=== PATIENT | male | born 1980 | race Caucasian/White ===

== ENCOUNTER 2017-03-11 09:43 | Emergency (ER) | payer SELFPAY | END 2017-03-11 12:49 | disposition home or self-care (01) | PROVIDERS: Emergency Provider Nurse Practitioner Family; Family Provider Emergency Medicine; Visit Provider Nurse Practitioner Family | DX: M54.6 Pain in thoracic spine; M25.561 Pain in right knee; V89.2XXA Person injured in unspecified motor-vehicle accident, traffic, initial encounter | CPT/HCPCS: 81003; 99201 ==

== ENCOUNTER 2017-05-16 08:38 | Emergency (ER) | payer MEDICAID, SELFPAY ==
--- NOTE | 2017-05-16 | CT_ITS ---
CT head/brain wo con HISTORY: Altered mental status, altered level of consciousness, confusion ITS.REASON: AMS ORDERING PHYSICIAN: Russell Lang MD PATIENT AGE: 36 years COMPARISON: None TECHNIQUE: Axial images obtained without contrast. Brain and bone windows reviewed. FINDINGS: No midline shift, mass effect, intracranial hemorrhage, hydrocephalus, or extra-axial fluid collection is evident. The calvarium has an unremarkable appearance. No mastoid effusion. Moderate mucosal thickening involves the ethmoid sinuses.. IMPRESSION: No acute intercranial findings.
[2017-05-16 09:07] VITALS: BP 137/87; PULSE 81; RESP 14; TEMP 37.2; O2SAT 96; BMI 25.8
--- NOTE | 2017-05-16 09:22 | XR_ITS ---
XR chest 2V HISTORY: Pain, pain between shoulder blades, tobacco use ITS.REASON: ams ORDERING PHYSICIAN: Russell Lang MD PATIENT AGE: 36 years COMPARISON: None available FINDINGS: The cardiomediastinal silhouette and pulmonary vascularity are within normal limits. Atelectasis or infiltrate is present in the left lung base with mildly elevated left hemidiaphragm. The remaining lungs are clear. No obvious effusions. There are slight decrease in height anteriorly involving the T8 vertebral body. This is age indeterminate. No previous studies are available for comparison. IMPRESSION: 1. Mild left basilar atelectasis or infiltrate to 2. Minimal wedging of T8 age indeterminate
--- NOTE | 2017-05-16 09:40 | XR_ITS ---
XR shoulder LT min 2V HISTORY: Left shoulder pain ITS.REASON: shoulder pain ORDERING PHYSICIAN: Russell Lang MD PATIENT AGE: 36 years COMPARISON: None FINDINGS: No fracture or dislocation. No lytic or blastic change. There is normal mineralization. The joint spaces are well-preserved. No significant degenerative/arthritic changes. No erosive changes evident. No subacromial stenosis. There are some minimal hypertrophic change along the lateral aspect of the acromion superiorly. IMPRESSION: Minimal hypertrophic changes of the acromion laterally otherwise negative left shoulder
--- NOTE | 2017-05-16 09:40 | XR_ITS ---
XR clavicle LT CLINICAL INDICATION: Left clavicular pain ITS.REASON: shoulder pain ORDERING PHYSICIAN: Russell Lang MD PATIENT AGE: 36 years COMPARISON: None FINDINGS: No fracture or dislocation. No bony or joint abnormality. IMPRESSION: Negative left clavicle
[2017-05-16 09:45] LABS: Microscopic, Urine URINE MICROSCOPIC (MICROSCOPIC)
[2017-05-16 09:47] LABS: Basophils % 0.1 % (0.1-2.0); Eosinophils # 0.1 K/mm3 (0.0-0.4); Eosinophils % 0.3 % (0.1-12.0); Hemoglobin 14.3 g/dL (14.1-18.0); Lymphocytes # 1.5 K/mm3 (0.7-4.5); Lymphocytes % 6.5 K/mm3 (10-50); Mean Corpuscular HGB Conc 33.2 g/dL (31.8-35.4); Mean Corpuscular Hemoglobin 29.8 pg (27.0-31.2); Mean Corpuscular Volume 89.7 fl (80-94); Mean Platelet Volume 8.7 fl (7.4-10.4); Monocytes # 1.6 K/mm3 (0.1-1.0); Monocytes % 6.9 % (1.7-9.3); Neutrophils # 20.2 K/mm3 (1.8-7.8); Neutrophils % 86.2 % (37.0-80.0); Platelet Count 232 K/mm3 (142-424); Red Blood Count 4.79 M/mm3 (4.60-6.20); Red Cell Distribution Width 13.5 % (11.5-17.5); White Blood Count 23.5 K/mm3 (4.8-10.8)
[2017-05-16 09:47] LABS: Appearance,Urine SL CLOUDY (Clear); Bilirubin,Urine Negative (Negative); Blood, Urine 2+ (Negative); Color,Urine YELLOW (Yellow); Glucose,Urine (UA) TRACE (Negative); Ketones,Urine Negative (Negative); Leukocyte Esterase,Urine Negative (Negative); Nitrate,Urine Negative (Negative); Protein,Urine TRACE (Negative); Specific Gravity, Urine <= 1.005 (1.005-1.030)
[2017-05-16 09:53] LABS: MANUAL DIFFERENTIAL MANUAL DIFFERENTIAL (MANUAL DIFF)
[2017-05-16 09:55] LABS: Bacteria,Urine 1+ /lpf; Squamous Epithelial Cell,Urine Occasional #/hpf (0-5); WBC,Urine Occasional #/hpf (0-3)
[2017-05-16 09:57] LABS: Amphetamine/Metha Screen,Urine Positive ng/mL (<1000); Barbiturates Screen,Urine Negative ng/mL (<200); Benzodiazepines Screen,Urine Negative ng/mL (200); Cannabinoid Screen,Urine Positive ng/mL (<50); Cocaine Screen,Urine Negative ng/g (<300); Methadone Screen,Urine Negative ng/mL (<300); Opiate Screen,Urine Positive ng/mL (<300); Phencyclidine Screen,Urine Negative ng/mL (<25)
[2017-05-16 10:01] LABS: Acetaminophen 1.9 ug/mL (10-30); Alanine Aminotransferase 25 U/L (12-78); Albumin Level 2.9 gm/dL (3.4-5.0); Albumin/Globulin Ratio 0.6 (1.1-1.8); Alkaline Phosphatase 109 U/L (46-116); Anion Gap 14.5 mEq/L (5-15); Aspartate Amino Transferase 11 U/L (15-37); Bilirubin,Total 0.5 mg/dL (0.2-1.0); Blood Urea Nitrogen 8 mg/dL (7-18); Calcium 8.5 mg/dL (8.5-10.1); Carbon Dioxide 25 mmol/L (21.0-32.0); Chloride 96 mmol/L (98-107); Creatinine Clearance Estimated 149 mL/min (0-300); Estimated Glomerular Filt Rate 110 ml/min (>60); GFR (African American) 133 ML/MIN (>60); Globulin 4.6 gm/dl (1.3-3.2); Glucose 144 mg/dL (74-106); Magnesium 1.6 mg/dL (1.4-2.2); Potassium 3.5 mmoL/L (3.5-5.1); Sodium 132 mmol/L (136-145); Total Protein,Serum 7.5 gm/dL (6.4-8.2)
[2017-05-16 10:02] LABS: Ethyl Alcohol 0 mg/dL (0-99)
[2017-05-16 10:03] LABS: Lactic Acid 0.6 mmol/L (0.4-2.0)
[2017-05-16 10:06] LABS: Salicylate 3.5 mg/dL (2.8-20.0)
--- NOTE | 2017-05-16 10:06 | HMH.EDGENADL ---
ED Disposition Clinical Impression: LLL pneumonia, Skin abscess, Active intravenous drug use, Leucocytosis, Left against medical advice Disposition: Home, Self-Care Condition on Discharge: Fair Instructions: Drug Abuse and Drug Addiction, DI for Pneumonia -- Adult, DI for Altered Mental Status, DI for Skin Abscess, DI for Staph Infection, Staph Infection Additional Instructions: 1- strat using abx immediately. 2- stop injecting drugs. 3- follow up with Dr Reeder in AM who took over for Dr Coats's patients. 4- return ifor admission if worse or if you change your mind. 5- alternate tylenol and motrin for fever and body aches. I explained to the patient that he is receiving imperic antibiotics and he need to follow with [facility] office for final results, he and his girfriend verbalized understanding. 1200 for one more time i discussed with the patient but he was adamant about leaving and taking antibiotics as an outpatient. Prescriptions: Clindamycin HCl [Clindamycin 300mg Cap] 300 mg PO TID #21 cap Sulfamethoxazole/Trimethoprim [Bactrim DS tablet] 2 each PO BID #40 tab Referrals: Syl Mathias APRN [Primary Care Provider] - - Critical Care Critical Care Time: No Attestation: On 05/16/17, the high probability of a clinically significant, sudden or life threatening deterioration of the following system(s) required my full and direct attention, intervention and personal management. The time I documented below is in addition to time spent performing reported procedures but includes the following listed in this critical care notation. Medical Decision Making Vital Signs: 05/16/17 09:07 Temperature 98.9 F Temperature Source Oral Pulse Rate [Right Radial] 81 Respiratory Rate 14 Blood Pressure [Right Arm] 137/87 Blood Pressure Mean [Right Arm] 103 Blood Pressure Source [Right Arm] Automatic Cuff Blood Pressure Position [Right Arm] Supine 02 Sat by Pulse Oximetry 96 Oxygen Delivery Method Room Air - Lab Data Lab Results 05/16/17 09:35: WBC 23.5 H*, RBC 4.79, Hgb 14.3, Hct 43.0, MCV 89.7, MCH 29.8, MCHC 33.2, RDW 13.5, Plt Count 232, MPV 8.7, Neut % (Auto) 86.2 H, Lymph % (Auto) 6.5 L, [place] % (Auto) 6.9, Eos % (Auto) 0.3, Baso % (Auto) 0.1, Neut # (Auto) 20.2 H, Lymph # (Auto) 1.5, [place] # (Auto) 1.6 H, Eos # (Auto) 0.1, Baso # (Auto) 0.0, Total Counted 100, Neutrophils % (Manual) 72, Band Neutrophils % 14.0 H, Lymphocytes % (Manual) 5 L, Monocytes % (Manual) 9, Platelet Estimate Normal, RBC Morphology Normal 05/16/17 09:35: Sodium 132 L, Potassium 3.5, Chloride 96 L, Carbon Dioxide 25, Anion Gap 14.5, BUN 8, Creatinine 0.80, Estimated Creat Clear 149, Estimated GFR 110, Est GFR ( Amer) 133, Glucose 144 H, Calcium 8.5, Magnesium 1.6, Total Bilirubin 0.5, AST 11 L, ALT 25, Alkaline Phosphatase 109, Total Protein 7.5, Albumin 2.9 L, Globulin 4.6 H, Albumin/Globulin Ratio 0.6 L, Salicylates 3.5, Acetaminophen 1.9 L, Plasma/Serum Alcohol 0 05/16/17 09:35: Lactic Acid 0.6 05/16/17 09:42: Urine Opiates Screen Positive H, Ur Barbituates Screen Negative, Ur Phencyclidine Scrn Negative, Ur Amphetamines Screen Positive H, U Methamphetamines Scrn Negative, U Benzodiazepines Scrn Negative, Urine Cocaine Screen Negative, U Marijuana (THC) Screen Positive H 05/16/17 09:42: Urine Color Yellow, Urine Appearance Sl cloudy, Urine pH 6.0, Ur Specific [place] <= 1.005, Urine Protein Trace, Urine Glucose (UA) Trace, Urine Ketones Negative, Urine Blood 2+, Urine Nitrate Negative, Urine Bilirubin Negative, Urine Urobilinogen 1.0, Ur Leukocyte Esterase Negative, Urine RBC 3-5, Urine WBC Occasional, Ur Squamous Epith Cells Occasional, Urine Bacteria 1+ Result diagrams: 05/16/17 09:35 05/16/17 09:35 Orders (Tests/Meds): ED MEDICATIONS Discontinued Medications Generic Name Dose Route Start Last Admin Trade Name Freq PRN Reason Stop Dose Admin Sodium Chloride 1,000 mls @ 999 mls/hr 05/16/17 09:30 05/16/17 10:13
--- NOTE | 2017-05-16 10:10 | ED_ITS ---
ED Disposition Clinical Impression: LLL pneumonia, Skin abscess, Active intravenous drug use, Leucocytosis, Left against medical advice Disposition: Home, Self-Care Condition on Discharge: Fair Instructions: Drug Abuse and Drug Addiction, DI for Pneumonia -- Adult, DI for Altered Mental Status, DI for Skin Abscess, DI for Staph Infection, Staph Infection Additional Instructions: 1- strat using abx immediately. 2- stop injecting drugs. 3- follow up with Dr Reeder in AM who took over for Dr Coats's patients. 4- return ifor admission if worse or if you change your mind. 5- alternate tylenol and motrin for fever and body aches. I explained to the patient that he is receiving imperic antibiotics and he need to follow with [facility] office for final results, he and his girfriend verbalized understanding. 1200 for one more time i discussed with the patient but he was adamant about leaving and taking antibiotics as an outpatient. Prescriptions: Clindamycin HCl [Clindamycin 300mg Cap] 300 mg PO TID #21 cap Sulfamethoxazole/Trimethoprim [Bactrim DS tablet] 2 each PO BID #40 tab Referrals: Syl Mathias APRN [Primary Care Provider] - - Critical Care Critical Care Time: No Attestation: On 05/16/17, the high probability of a clinically significant, sudden or life threatening deterioration of the following system(s) required my full and direct attention, intervention and personal management. The time I documented below is in addition to time spent performing reported procedures but includes the following listed in this critical care notation. Medical Decision Making Vital Signs: 05/16/17 09:07 Temperature 98.9 F Temperature Source Oral Pulse Rate [Right Radial] 81 Respiratory Rate 14 Blood Pressure [Right Arm] 137/87 Blood Pressure Mean [Right Arm] 103 Blood Pressure Source [Right Arm] Automatic Cuff Blood Pressure Position [Right Arm] Supine 02 Sat by Pulse Oximetry 96 Oxygen Delivery Method Room Air - Lab Data Lab Results 05/16/17 09:35: WBC 23.5 H*, RBC 4.79, Hgb 14.3, Hct 43.0, MCV 89.7, MCH 29.8, MCHC 33.2, RDW 13.5, Plt Count 232, MPV 8.7, Neut % (Auto) 86.2 H, Lymph % (Auto ) 6.5 L, [place] % (Auto) 6.9, Eos % (Auto) 0.3, Baso % (Auto) 0.1, Neut # (Auto) 20.2 H, Lymph # (Auto) 1.5, [place] # (Auto) 1.6 H, Eos # (Auto) 0.1, Baso # (Auto ) 0.0, Total Counted 100, Neutrophils % (Manual) 72, Band Neutrophils % 14.0 H, Lymphocytes % (Manual) 5 L, Monocytes % (Manual) 9, Platelet Estimate Normal, RBC Morphology Normal 05/16/17 09:35: Sodium 132 L, Potassium 3.5, Chloride 96 L, Carbon Dioxide 25, Anion Gap 14.5, BUN 8, Creatinine 0.80, Estimated Creat Clear 149, Estimated GFR 110, Est GFR ( Amer) 133, Glucose 144 H, Calcium 8.5, Magnesium 1.6, Total Bilirubin 0.5, AST 11 L, ALT 25, Alkaline Phosphatase 109, Total Protein 7.5, Albumin 2.9 L, Globulin 4.6 H, Albumin/Globulin Ratio 0.6 L, Salicylates 3.5, Acetaminophen 1.9 L, Plasma/Serum Alcohol 0 05/16/17 09:35: Lactic Acid 0.6 05/16/17 09:42: Urine Opiates Screen Positive H, Ur Barbituates Screen Negative , Ur Phencyclidine Scrn Negative, Ur Amphetamines Screen Positive H, U Methamphetamines Scrn Negative, U Benzodiazepines Scrn Negative, Urine Cocaine Screen Negative, U Marijuana (THC) Screen Positive H 05/16/17 09:42: Urine Color Yellow, Urine Appearance Sl cloudy, Urine pH 6.0, Ur Specific [place] <= 1.005, Urine Protein Trace, Urine Glucose (UA) Trace, Urine Ketones Negative, Urine Blood 2+, Urine Nitrate Negative, Urine Bilirubin Nega
[2017-05-16 10:11] LABS: Lymphocytes % 5 % (10-50); Monocytes % 9 % (2-9); Neutrophils % 72 % (42-76); Platelet Estimate Normal; RBC Morphology Normal; Total Cells Counted 100
[2017-05-16 11:50] VITALS: BP 137/87; PULSE 87; RESP 14; TEMP 37.2; O2SAT 96
--- NOTE | 2017-05-19 09:58 | PC.NURSE ---
Checked pt culture results that were called from lab, pt is on antibiotics that culture results are sensitive too. Attempted to contact pt to make sure pt arranged follow up, no answer on number given by pt.
== END 2017-05-16 11:50 | disposition home or self-care (01) ==
PROVIDERS: Emergency Provider Emergency Medicine; Family Provider Emergency Medicine; PCP Nurse Practitioner Family
DX: J18.9 Pneumonia, unspecified organism (principal); Z53.21 Procedure and treatment not carried out due to patient leaving prior to being seen by health care provider; L02.91 Cutaneous abscess, unspecified; D72.829 Elevated white blood cell count, unspecified; F11.10 Opioid abuse, uncomplicated; F15.10 Other stimulant abuse, uncomplicated
CPT/HCPCS: 70450; 71046; 73000; 73030; 80053; 80305; 80329; 81001; 83605; 83735; 85007; 85025; 87040; 87077; 87186; 96365; 96366; 99283

== ENCOUNTER 2017-05-19 20:24 | Observation (INO) | payer MEDICAID, SELFPAY ==
[2017-05-19 20:27] VITALS: BP 124/77; PULSE 127; RESP 16; TEMP 36.9; O2SAT 99; BMI 26.5
--- NOTE | 2017-05-19 20:38 | XR_ITS ---
XR chest 2V HISTORY: ITS.REASON: pneumonia follow up/ pain ORDERING PHYSICIAN: Mando Clark MD PATIENT AGE: 36 years COMPARISON: 05/16/2017 FINDINGS: The cardiomediastinal silhouette and pulmonary vascularity are within normal limits. Left basilar airspace disease has improved. There is increased density overlying both upper lobes medially left more so than right probably related to overlying skin fold artifact not apparent on the previous exam. Follow-up may confirm. IMPRESSION: Improving left basilar atelectasis or infiltrate. Probable summation artifact in the upper chest bilaterally
--- NOTE | 2017-05-19 20:54 | PC.NURSE ---
attempts to get Pt for x-ray, P.O. speaking with Pt and asked for a few minutes. X-ray waiting.
--- NOTE | 2017-05-19 21:35 | HMH.EDMCLR ---
ED Disposition Clinical Impression: Staphylococcus aureus bacteremia, Active intravenous drug use Disposition: Admitted as Observation Condition on Discharge: Good - Critical Care Critical Care Time: No Attestation: On 05/19/17, the high probability of a clinically significant, sudden or life threatening deterioration of the following system(s) required my full and direct attention, intervention and personal management. The time I documented below is in addition to time spent performing reported procedures but includes the following listed in this critical care notation. Medical Decision Making - Medical Records Medical records reviewed: Yes: I reviewed the patient's medical records. Vital Signs: 05/19/17 20:27 Temperature 98.5 F Temperature Source Oral Pulse Rate [Left Radial] 127 H Respiratory Rate 16 Blood Pressure [Right Arm] 124/77 Blood Pressure Mean [Right Arm] 92 Blood Pressure Source [Right Arm] Automatic Cuff Blood Pressure Position [Right Arm] Sitting 02 Sat by Pulse Oximetry 99 Oxygen Delivery Method Room Air - Lab Data Lab Results 05/19/17 21:50: WBC 15.8 H, RBC 4.66, Hgb 13.6 L, Hct 42.1, MCV 90.4, MCH 29.2, MCHC 32.3, RDW 13.8, Plt Count 445 H D, MPV 8.7, Neut % (Auto) 76.7, Lymph % (Auto) 16.2, [place] % (Auto) 6.1, Eos % (Auto) 0.8, Baso % (Auto) 0.2, Neut # (Auto) 12.1 H, Lymph # (Auto) 2.6, [place] # (Auto) 1.0, Eos # (Auto) 0.1, Baso # (Auto) 0.0 05/19/17 21:50: Sodium 133 L, Potassium 3.6, Chloride 100, Carbon Dioxide 23, Anion Gap 13.6, BUN 9, Creatinine 0.96, Estimated Creat Clear 127, Estimated GFR 89, Est GFR ( Amer) 108, Glucose 124 H, C-Reactive Protein 10.7 H 05/19/17 21:50: ESR 99 H 05/19/17 21:50: Lactic Acid 1.2 05/19/17 22:49: Total Creatine Kinase 29 L, CK-MB (CK-2) 0.5, CK-MB (CK-2) Rel Index 1.7, Troponin I < 0.02 Result diagrams: 05/19/17 21:50 05/19/17 21:50 Orders (Tests/Meds): ED MEDICATIONS Discontinued Medications Generic Name Dose Route Start Last Admin Trade Name Ana PRN Reason Stop Dose Admin Vancomycin HCl 1,500 mg/ 250 mls @ 125 mls/hr 05/19/17 22:53 05/19/17 23:17 Sodium Chloride IV 05/19/17 22:54 125 mls/hr ONCE ONE Administration Protocol ORDERS Category Date Time Status XR chest 2V Stat Exams 05/19/17 20:38 Taken Complete Blood Count Auto Diff Stat Lab 05/19/17 21:50 Results Blood Culture Stat Micro 05/19/17 21:50 Received EKG Request [ECG Request by /Rachel] Stat Y 05/19/17 22:50 Ordered - Radiology Data #1 Image(s): Chest Image Reviewed: Yes I reviewed the patient's radiology image Preliminary Findings: Normal/NAD - ECG Data Tracing #1 I reviewed this ECG and interpreted as documented below: Arrhythmias present: sinus tach Ischemic changes: non-specific ST-T wave changes - Moy Inquiry Pt receiving controlled substance: No Medical Clearance HPI - General Chief complaint: Medical Clearance Stated complaint: Medical Clearence Time Seen by Provider: 05/19/17 21:36 Mode of Arrival: Ambulatory Source of Information: Patient, Medical Record Limitations: No Limitations Description of Symptoms (Recalled from ER Triage Doc. by RN): medical clearance, pt states he was on his way here for recheck of pneumonia when he was pulled over - History of Present Illness HPI Narrative: pt brought by police with hx of heroin use and was in the ed a few days ago and left ama as he had elevated wbc and had pos staph blood culture - he has atypical chest pain - he reports recent use of heroin MD complaint: medical clearance requested Onset (ago): day(s) Reason for Medical Clearance: other Alleged Intoxication: No Compliant with Home Medications: Yes Traumatic Symptoms: denies traumatic injury Home medications: Home Medications Medication Instructions Recorded Confirmed Clindamycin HCl [Clindamycin 300mg 300 mg PO TID 05/19/17 05/19/17 Cap] Sulfamethoxazole/Trimethoprim 2 each PO BI
--- NOTE | 2017-05-19 22:08 | ED_ITS ---
ED Disposition Clinical Impression: Staphylococcus aureus bacteremia, Active intravenous drug use Disposition: Admitted as Observation Condition on Discharge: Good - Critical Care Critical Care Time: No Attestation: On 05/19/17, the high probability of a clinically significant, sudden or life threatening deterioration of the following system(s) required my full and direct attention, intervention and personal management. The time I documented below is in addition to time spent performing reported procedures but includes the following listed in this critical care notation. Medical Decision Making - Medical Records Medical records reviewed: Yes: I reviewed the patient's medical records. Vital Signs: 05/19/17 20:27 Temperature 98.5 F Temperature Source Oral Pulse Rate [Left Radial] 127 H Respiratory Rate 16 Blood Pressure [Right Arm] 124/77 Blood Pressure Mean [Right Arm] 92 Blood Pressure Source [Right Arm] Automatic Cuff Blood Pressure Position [Right Arm] Sitting 02 Sat by Pulse Oximetry 99 Oxygen Delivery Method Room Air - Lab Data Lab Results 05/19/17 21:50: WBC 15.8 H, RBC 4.66, Hgb 13.6 L, Hct 42.1, MCV 90.4, MCH 29.2, MCHC 32.3, RDW 13.8, Plt Count 445 H D, MPV 8.7, Neut % (Auto) 76.7, Lymph % ( Auto) 16.2, [place] % (Auto) 6.1, Eos % (Auto) 0.8, Baso % (Auto) 0.2, Neut # (Auto ) 12.1 H, Lymph # (Auto) 2.6, [place] # (Auto) 1.0, Eos # (Auto) 0.1, Baso # (Auto ) 0.0 05/19/17 21:50: Sodium 133 L, Potassium 3.6, Chloride 100, Carbon Dioxide 23, Anion Gap 13.6, BUN 9, Creatinine 0.96, Estimated Creat Clear 127, Estimated GFR 89, Est GFR ( Amer) 108, Glucose 124 H, C-Reactive Protein 10.7 H 05/19/17 21:50: ESR 99 H 05/19/17 21:50: Lactic Acid 1.2 05/19/17 22:49: Total Creatine Kinase 29 L, CK-MB (CK-2) 0.5, CK-MB (CK-2) Rel Index 1.7, Troponin I < 0.02 Result diagrams: 05/19/17 21:50 05/19/17 21:50 Orders (Tests/Meds): ED MEDICATIONS Discontinued Medications Generic Name Dose Route Start Last Admin Trade Name Ana PRN Reason Stop Dose Admin Vancomycin HCl 1,500 mg/ 250 mls @ 125 mls/hr 05/19/17 22:53 05/19/17 23:17 Sodium Chloride IV 05/19/17 22:54 125 mls/hr ONCE ONE Administration Protocol ORDERS Category Date Time Status XR chest 2V Stat Exams 05/19/17 20:38 Taken Complete Blood Count Auto Diff Stat Lab 05/19/17 21:50 Results Blood Culture Stat Micro 05/19/17 21:50 Received EKG Request [ECG Request by /Rachel] Stat Y 05/19/17 22:50 Ordered - Radiology Data #1 Image(s): Chest Image Reviewed: Yes I reviewed the patient's radiology image Preliminary Findings: Normal/NAD - ECG Data Tracing #1 I reviewed this ECG and interpreted as documented below: Arrhythmias present: sinus tach Ischemic changes: non-specific ST-T wave changes - Moy Inquiry Pt receiving controlled substance: No Medical Clearance HPI - General Chief complaint: Medical Clearance Stated complaint: Medical Clearence Time Seen by Provider: 05/19/17 21:36 Mode of Arrival: Ambulatory Source of Information: Patient, Medical Record Limitations: No Limitations Description of Symptoms (Recalled from ER Triage Doc. by RN): medical clearance , pt states he was on his way here for recheck of pneumonia when he was pulled over - History of Presen
[2017-05-19 22:18] LABS: Basophils % 0.2 % (0.1-2.0); Eosinophils # 0.1 K/mm3 (0.0-0.4); Eosinophils % 0.8 % (0.1-12.0); Hematocrit 42.1 % (42.0-52.0); Hemoglobin 13.6 g/dL (14.1-18.0); Lymphocytes # 2.6 K/mm3 (0.7-4.5); Lymphocytes % 16.2 K/mm3 (10-50); Mean Corpuscular HGB Conc 32.3 g/dL (31.8-35.4); Mean Corpuscular Hemoglobin 29.2 pg (27.0-31.2); Mean Corpuscular Volume 90.4 fl (80-94); Mean Platelet Volume 8.7 fl (7.4-10.4); Monocytes % 6.1 % (1.7-9.3); Neutrophils # 12.1 K/mm3 (1.8-7.8); Neutrophils % 76.7 % (37.0-80.0); Platelet Count 445 K/mm3 (142-424); Red Blood Count 4.66 M/mm3 (4.60-6.20); Red Cell Distribution Width 13.8 % (11.5-17.5); White Blood Count 15.8 K/mm3 (4.8-10.8)
[2017-05-19 22:25] LABS: Anion Gap 13.6 mEq/L (5-15); Blood Urea Nitrogen 9 mg/dL (7-18); C-Reactive Protein 10.7 mg/L (0.0-0.9); Carbon Dioxide 23 mmol/L (21.0-32.0); Chloride 100 mmol/L (98-107); Creatinine Clearance Estimated 127 mL/min (0-300); Creatinine,Serum 0.96 mg/dL (0.70-1.30); Estimated Glomerular Filt Rate 89 ml/min (>60); GFR (African American) 108 ML/MIN (>60); Glucose 124 mg/dL (74-106); Potassium 3.6 mmoL/L (3.5-5.1); Sodium 133 mmol/L (136-145)
[2017-05-19 22:26] LABS: MANUAL DIFFERENTIAL MANUAL DIFFERENTIAL (MANUAL DIFF)
[2017-05-19 22:45] LABS: Lactic Acid 1.2 mmol/L (0.4-2.0)
--- NOTE | 2017-05-19 22:55 | PC.NURSE ---
spoke with Silvano in pharmacy related to Vancomycin dose of 1500 mg one time dose
[2017-05-19 23:05] LABS: Erythrocyte Sedimentation Rate 99 mm/hr (0-15)
[2017-05-19 23:16] LABS: CKMB Relative Index 1.7 U/L (0-4.0); Creatine Kinase 29 U/L (39-308); Creatine Kinase MB 0.5 mg/ml (0.0-3.6); Troponin I < 0.02 ng/ml (0.00-0.06)
--- NOTE | 2017-05-19 23:25 | PC.NURSE ---
dr scanlon spoke with dr carrillo.
[2017-05-19 23:28] LABS: Anisocytosis 1+; Lymphocytes % 25 % (10-50); Monocytes % 5 % (2-9); Neutrophils % 70 % (42-76); Platelet Estimate Normal; Total Cells Counted 100
[2017-05-19 23:52] VITALS: BP 128/88; PULSE 100; RESP 20
--- NOTE | 2017-05-19 23:54 | PC.NURSE ---
Patient pulled out IV #22 to Left hand
[2017-05-20 00:01] VITALS: BP 128/68; PULSE 79; RESP 18; TEMP 36.9
--- NOTE | 2017-05-20 00:01 | PC.NURSE ---
PT FULL CODE, REPORT RECEIVED FROM VINNIE
[2017-05-20 00:21] VITALS: BP 131/88; PULSE 101; RESP 18; TEMP 36.8; O2SAT 98; BMI 23.8
[2017-05-20 00:50] VITALS: PULSE 101; RESP 18; O2SAT 98
--- NOTE | 2017-05-20 01:02 | PC.NURSE ---
MD AWARE PT RECENTLY USED HEROIN.
--- NOTE | 2017-05-20 01:42 | PC.NURSE ---
PT WAS BEING VERY DIFFICULT DURING ADMISSION PROCESS. REFUSING TO ANSWER QUESTIONS, OR ANSWERING UNTRUE. PT VERY RUDE. WHILE WORKING ON ADMISSION PROCESS, PT CALLED HIS GIRLFRIEND, SHE ARRIVED SOON AFTER. IF WAS DIFFICULT GETTING HIM TO ANSWER ANY QUESTIONS HE WAS BACK AND FORTH IN CONVERSATION WITH HER. SHE LEFT. HE CONTINUED TO CALL HER WHILE I FINALLY COMPLETED ADMISSION. PT CAME OUT OF ROOM AND WAS ROUNDING CORNER. HAD HIS HOODIE ON. STATED HE WAS OUTTA HERE I HAD AMA FORM AND HE SIGNED IT AND WAS GONE, PT HAD UNHOOKED IV TUBING, LEAVING IT INFUSING IN FLOOR AND LEFT WITH IV IN RT UPPER ARM. SEVERAL STAFF WENT AFTER PT TO REMOVED IT, BUT UNABLE TO FIND PT. CHARGE NURSE AWARE AND MOTEL OPERATOR WELL.
--- NOTE | 2017-05-20 08:20 | P.HPDS_ITS ---
General - General Admission date: 05/19/17 Discharge date: 05/19/17 *Admission Date: 05/19/17 *Chief complaint: bactremia *History of present illness: 36 yr old male pt brought by police with hx of heroin use and was in the ed a few days ago and left ama as he had elevated wbc and had pos staph blood culture - he has atypical chest pain - he reports recent use of heroin PT LEFT AMA before being seen on floor [facility] History I have reviewed the patient's past medical history: Yes Medical History: Denies:: Cancer, Diabetes Mellitus Type 1, Diabetes Mellitus Type 2, MRSA Other Medical History: Reports: Arthritis Laterality Cases: Right: Other Other Surgeries: Yes: Other (RT FOOT, ANKLE, KNEE, LEG) Amputation: No Fractures: No - *Social History Educational Level: Attended College Smoking Status: Current every day smoker Tobacco Type: cigarettes # Packs/Day (cigarettes): 1 Alcohol Intake: never Substance Use Type: heroin Last Used Substance: days (ago) Occupational Status: employed Housing: apartment Household Members: significant other - Psychiatric History Expresses thoughts of harming self/others: None Suicide Plan Description: No Plan Review of Systems - Review of Systems Review of systems:: unable to obtain - *Neurologic Denies headache(s), Denies tingling/numbness/burning sensations Exam Vital signs and Labs for Last 24 Hours: Temp Pulse Resp BP Pulse Ox 98.3 F 101 H 18 131/88 98 05/20/17 00:21 05/20/17 00:50 05/20/17 00:50 05/20/17 00:21 05/20/17 00:50 I & O for Last 24 hours: Intake & Output 05/17/17 05/18/17 05/19/17 05/20/17 11:59 11:59 11:59 11:59 Intake Total 197 / 197 Balance 197 / 197 Weight 166 lb 9 oz Discharge Medications Discharge Medications: Home Medications Medication Instructions Recorded Confirmed Type Clindamycin HCl [Clindamycin 300mg 300 mg PO TID 05/19/17 05/19/17 History Cap] Sulfamethoxazole/Trimethoprim 2 each PO BID 05/19/17 05/19/17 History [Bactrim DS tablet] Disposition Disposition: Left Against Medical Advice
== END 2017-05-20 01:16 | disposition left against medical advice (07) ==
LOC: ER 21:58 → 2ND 23:25
PROVIDERS: Admitting Provider Emergency Medicine; Emergency Provider Emergency Medicine; Family Provider Emergency Medicine; PCP Emergency Medicine; Visit Provider Emergency Medicine
DX: L02.91 Cutaneous abscess, unspecified (principal); Z72.0 Tobacco use; F19.90 Other psychoactive substance use, unspecified, uncomplicated
CPT/HCPCS: 71046; 80048; 82550; 82553; 83605; 84484; 85007; 85025; 85651; 86140; 87040; 93005; 96365; 99284; G0378; J3370

== ENCOUNTER 2023-03-11 09:27 | Emergency (ER) | payer BC, SELFPAY ==
[2023-03-11 09:38] VITALS: BP 131/98; PULSE 84; RESP 20; TEMP 36.8; O2SAT 98; BMI 42.0
--- NOTE | 2023-03-11 09:53 | ED_ITS ---
Discharge Plan Disposition Patient Disposition: Home, Self-Care Condition: Good Prescriptions Prescriptions: New Xofluza 80 mg tablet 80 mg PO ONCE Qty: 1 0RF Rx Instructions: Take as directed. No Action sulfamethoxazole-trimethoprim 1 EACH tablet 2 ea PO BID clindamycin HCl 300 MG capsule 300 mg PO TID Referrals Follow up/Referrals: Provider,Referral, [Primary Care Provider] - See instructions Activity Restrictions/Add. Instructions Additional Instructions/Restrictions: You were evaluated in the ER today for upper respiratory symptoms. You are positive for influenza. I prescribed Xofluza, if it is extremely expensive you do not have to take it, if they attempt to substitute Tamiflu, you do not have to take that either. This medication may help shorten the course of your symptoms. Take Tylenol and ibuprofen if needed for body aches or fever. Make an appointment with your primary care physician for reevaluation in 2 to 3 days. Return to the ER with any new, worsening, or otherwise concerning symptoms. Clinical Impressions Clinical Impression: Influenza A Stand Alone Forms Stand Alone Forms: Work/School Release Discharge ED Provider: Carolynn Encarnacion General Adult HPI General Chief complaint: Fever Stated complaint: congestion, fever, weakness, body aches Time Seen by Provider: 03/11/23 09:49 Mode of Arrival: Ambulatory Source of Information: Patient Limitations: No Limitations Description of Symptoms (Recalled from ER Triage Doc. by RN): pt to ed c/o weakness, fever, body aches since wednesday. pt denies taking NSAIDS for pain and fever. History of Present Illness HPI narrative: This 42-year-old male with no known chronic medical conditions presents to the ER with concerns of 2 days of generalized malaise, body aches, fever up to 101. Patient states he took Tylenol PM last night but has not taken any other medications for his symptoms. He also states he has cough and congestion. He had 1 episode of posttussive emesis 2 days ago but no other vomiting or diarrhea. He states he has been drinking plenty of water, his appetite is decreased. Patient smokes and drinks socially, he also uses marijuana and states he used a gummy last night. No other illicit substances. Related Data Home Medications Medication Instructions Recorded Confirmed clindamycin HCl 300 mg capsule 300 mg PO TID pneumonia 05/19/17 05/19/17 sulfamethoxazole 800 2 ea PO BID pneumonia 05/19/17 05/19/17 mg-trimethoprim 160 mg tablet Previous Rx's Medication Instructions Recorded baloxavir marboxil 80 mg tablet 80 mg PO ONCE #1 tab 03/11/23 (Xofluza) Allergies Allergy/AdvReac Type Severity Reaction Status Date / Time No Known Allergies [facility]ergy Verified 05/19/17 20:46 [facility] Disclaimer: The information contained in this section may have been updated after the patient was seen, as this information can be updated by other users. Social History Smoking Status: Current every day smoker tobacco type: cigarettes packs per day: 1 second hand exposure: Yes alcohol intake: never substance use type: heroin current occupational status: employed Travel in the last 8 weeks: None household members: significant other housing: apartment current occupation: CONSTRUCTION current occupational exposures/hazards: No caffeine: Yes ROS Obtained: Yes All systems reviewed & no additional complaints except as documented Constitutional Constitutional: Reports body ache, Reports chills, Reports fever(s), Denies headache(s) and Denies weakness Eyes Eyes: Denies change in vision ENT Ears, Nose, Mouth, and Throat: Denies dizziness, Denies headache(s), Reports nasal congestion and Denies sore throat Cardiovascular Cardiovascular: Denies chest pain, Denies dyspnea and Denies leg edema Respiratory Respiratory: Reports cough and Denies dyspnea Gastrointestinal Gastrointestingal: Reports vomiting; Denies constipation, diarrhea or nausea Genitourinary Male Genitourinary: Denies difficulty urinating Musculoskeletal Musculoskeletal: Denies arthralgias, Reports myalgias, Denies numbness and Denies tingling Integumentary/Breasts Skin/Breast: Denies change in pigmentation Neurologic Neurologic: Denies dizziness, Denies headache(s), Denies numbness, Denies tingling and Denies weakness Physical Exam General General appearance: alert and in no apparent distress Head Head exam: atraumatic and normocephalic Eye Eye exam: Present PERRL and EOMI ENT ENT exam: Present mucous membranes moist Neck Neck exam: Present normal inspection and full ROM Chest Chest inspection: Present symmetric chest wall rise Respiratory Respiratory exam: Present normal lung sounds bilaterally; Absent respiratory distress, wheezes or stridor Cardiovascular Cardiovascular exam: Present regular rate and normal rhythm Abdominal Exam Abdominal exam: Present soft; Absent distention, tenderness, guarding or rebound Extremities Exam Extremities exam: Present full ROM Neurological Exam Neurological exam: Present alert and oriented X3; Absent motor sensory deficit Psychiatric Psychiatric exam: Present normal affect and normal mood Skin Skin exam: Present warm and dry Medical Decision Making Moy Inquiry Pt receiving controlled substance: No Vital Signs: 03/11/23 09:38 Temperature 98.3 F Temperature Source Oral Pulse Rate [Left Radial] 84 Respiratory Rate 20 Blood Pressure [Right Arm] 131/98 H Blood Pressure Mean [Right Arm] 109 02 Sat by Pulse Oximetry 98 Oxygen Delivery Method Room Air Lab Data Lab Results 03/11/23 09:35: SARS-CoV-2 (PCR) Not detected, Influenza A Untype (PCR) Detected A, Influenza Type B (PCR) Not detected Orders (Tests/Meds): ED MEDICATIONS Discontinued Medications Generic Name Dose Route Start Last Admin Trade Name Edilq PRN Reason Stop Dose Admin Acetaminophen 1,000 mg 03/11/23 09:53 03/11/23 10:06 Acetaminophen 500mg Tab PO 03/11/23 09:54 1,000 mg ONCE ONE Administration Ibuprofen 600 mg 03/11/23 09:53 03/11/23 10:05 Ibuprofen 600 Mg Tablet PO 03/11/23 09:54 600 mg ONCE ONE Administration ORDERS Category Date Time Status CXR --portable [XR chest portable] Stat Exams 03/11/23 09:56 Taken Rapid PCR Covid and Flu A/B Stat Lab 03/11/23 09:35 Completed Medical Decision Narrative: In summary, this 42year old male presents to the emergency department today with generalized malaise, body aches, fever up to 101 at home, cough, congestion. On initial evaluation patient is hemodynamically stable, afebrile, resting comfortably. Cardiopulmonary exam is reassuring, lungs are clear to auscultati on bilaterally with no adventitious sounds, no peripheral edema, remainder of exam also benign. Differential diagnosis includes but is not limited to viral syndrome including COVID, influenza, pneumonia. Based on these concerns, I ordered chest x-ray, viral testing, symptomatic management with Tylenol and ibuprofen. Labs reviewed demonstrate positive for influenza A Chest x-ray personally interpreted demonstrates chest x-ray personally interpreted does not demonstrate any lobar infiltrate. See radiology read for final interpretation. On reassessment patient remains stable. He has not had significant change in his symptoms but is appropriate to discharge. We discussed Tamiflu which patient does not want after shared decision making. I did prescribe Xofluza. We discussed that if it is extremely expensive or unavailable due to insurance or the pharmacy, it is not highly important for him to take it, and may help reduce his symptom burden though. Patient was given instructions on symptomatic management, follow up instructions, and return precautions for the emergency department. Patient indicated understanding and was discharged in stable condition. Critical Care Critical Care Time Critical Care Time: No
[2023-03-11 09:56] LABS: Coronavirus 19, PCR Not Detected (NotDetected); Influenza B, PCR Not Detected (NotDetected)
--- NOTE | 2023-03-11 09:56 | XR_ITS ---
FINAL REPORT CLINICAL HISTORY: cough, smoker x 20 yrs, hx pna COMPARISON: 05/19/2017 FINDINGS: The heart size is normal. The mediastinum is normal. There is no focal infiltrate or edema. There are no pleural effusions. There is no pneumothorax. There is no osseous abnormality. IMPRESSION: No acute cardiopulmonary process Reviewed, Interpreted and Dictated by Hardik Philip MD Transcribed by Radha Atkinson Authenticated and [facility]
[2023-03-11] MEDS: IBUPROFEN 600 MG TABLET PO (10:05)
[2023-03-11] MEDS: ACETAMINOPHEN 500MG TAB 1000 MG PO (10:06)
[2023-03-11 10:32] LABS: Influenza A, PCR Detected (NotDetected)
[2023-03-11 10:48] VITALS: BP 126/85; PULSE 85; RESP 18; TEMP 36.6; O2SAT 97
== END 2023-03-11 10:49 | disposition home or self-care (01) ==
PROVIDERS: Emergency Provider Emergency Medicine
DX: J10.1 Influenza due to other identified influenza virus with other respiratory manifestations (principal); R53.1 Weakness; R50.9 Fever, unspecified; R05.9 Cough, unspecified; F17.210 Nicotine dependence, cigarettes, uncomplicated
CPT/HCPCS: 71045; 87636; 99283

== ENCOUNTER 2025-01-22 14:26 | Emergency (ER) | payer SELFPAY ==
[2025-01-22 14:29] VITALS: BP 151/97; PULSE 66; RESP 16; TEMP 37.1; O2SAT 99; BMI 31.5
--- NOTE | 2025-01-22 15:20 | PC.NURSE ---
[id number]- patient offered chair room and educated that family would need to remain in the lobby. patient declined at this time and wished to remain in the lobby
[2025-01-22 15:26] LABS: Coronavirus 19, PCR Not Detected (NotDetected); Influenza A, PCR Not Detected (NotDetected); Influenza B, PCR Not Detected (NotDetected)
--- OUTSIDE RECORDS SUMMARY | 2025-01-22 15:49 | XMS_ITS | Clinical Summary ---
Author Organization [facility] Address [address] [place] [address] Phone Care Team Providers Care Woods Boss Name Role Phone Mando Clark MD Primary Care Provider [phone] Allergies No known active allergies Medications gabapentin (NEURONTIN) 800 mg Oral Tablet Take 800 mg by mouth 3 times daily. Active CYCLOBENZAPRINE HCL (FLEXERIL ORAL) Take 7.5 mg by mouth 3 times daily as needed. Active Surgical History Surgery Date Site/Laterality Comments ORTHOPEDIC SURGERY MANDIBLE FRACTURE SURGERY Medical History Medical History Date Comments Jaw fracture (HCC) Opiate abuse, continuous (HCC) Social History Tobacco Use Types Packs/Day Years Used Date Smoking Tobacco: Every Day Cigarettes Smokeless Tobacco: Never Alcohol Use Standard Drinks/Week Comments No 0 (1 standard drink = 0.6 oz pur e alcohol) Sex and Gender Information Value Date Recorded Sex Assigned at Not on file Legal Sex Male 7:15 PM EST Gender Identity Not on file Sexual Orientation Not on file Last Filed Vital Signs Vital Sign Reading Time Taken Comments Blood Pressure 122/96 03/01/2017 9:30 PM EST Pulse 109 03/01/2017 9:30 PM EST Temperature 36.7 C (98 F) 03/01/2017 7:18 PM EST Respiratory Rate 18 03/01/2017 9:30 PM EST Oxygen Saturation 99% 03/01/2017 9:30 PM EST Inhaled Oxygen Concentration - - Weight 83.9 kg (185 lb) 03/01/2017 7:18 PM EST Height 157.5 cm (5' 2 ) 03/01/2017 7:18 PM EST Body Mass Index 33.84 03/01/2017 7:18 PM EST Plan of Treatment Health Maintenance Due Date Last Done Comments Annual Wellness Exam 1984 DTaP/TDaP/Td (1 - Tdap) 2000 Hepatitis B Vaccine (1 of 3 - 19+ 3-dose series) 2000 COVID-19 Vaccine (1 - 2024-2 6 season) 2024 Influenza Vaccine (#1) 2024 Meningococcal B Vaccine Aged Out No l onger eligible based on patient's age to complete this topic Pneumococcal Vaccine 0-49 Aged Out No longer eligible based on patient's age to complete this topic Insurance [employer] GENERIC [facility] [id number] [facility] [place] [address] Care Teams Woods Boss Relationship Specialty Start Date End Date Mando Clark MD [address] [place] [address] [place] [id number] PCP - General Emergency Medicine 03/01/17
[2025-01-22] MEDS: 0.9 % SODIUM CHLORIDE 1000ML 1,000 ML 999 ML IV (16:31)
[2025-01-22] MEDS: DEXAMETHASONE 4MG/ML 1ML VIAL 8 MG IV (16:33)
[2025-01-22] MEDS: PROCHLORPERAZINE 10MG/2ML VIAL 5 MG IV (16:35)
[2025-01-22] MEDS: KETOROLAC 30MG/ML VIAL 30 MG IV (16:35)
--- NOTE | 2025-01-22 16:48 | ED_ITS ---
<Statement entered by Riri Alcazar DO - 01/23/25 00:09> I was consulted by the VON, and we discussed the complexity of problems being addressed. I approved the treatment plan and management plan of this patient's care in the emergency department, thus performing a substantive portion of medical decision making. Riri Alcazar DO Discharge Plan Disposition Chief Complaint: Headache Prescriptions Prescriptions: No Action Xofluza 80 mg tablet 80 mg PO ONCE Qty: 1 0RF Rx Instructions: Take as directed. sulfamethoxazole-trimethoprim 1 EACH tablet 2 ea PO BID clindamycin HCl 300 MG capsule 300 mg PO TID Referrals Follow up/Referrals: Provider,Referral, [Primary Care Provider, Medical] - See instructions Print Language Print Language: Setswana Discharge ED Provider: Riri Alcazar General Adult HPI General Chief complaint: Headache Stated complaint: flu symptoms, headache Time Seen by Provider: 01/22/25 16:06 Mode of Arrival: Ambulatory Source of Information: Patient Description of Symptoms (Recalled from ER Triage Doc. by RN): Pt states he has had flu like symptoms for two days. Denies N/V, states he has a headache with light sensitivity as well as muscle aches. Pt also states he is peeing more. History of Present Illness HPI narrative: 44-year-old male who presents to the ED today for flulike symptoms for the past 2 days. He has had nausea and vomiting and has had migraine with light and sound sensitivity. He has had muscle aches as well. He did not tell me he was urinating more but he told the nursing staff that he was. We will get a urine. Patient states that he had migraines a lot when he was younger and this is one of his worst headaches. We will get a Noncon scan of his head. Related Data Home Medications ?Medication ?Instructions ?Recorded ?Confirmed clindamycin HCl 300 mg capsule 300 mg PO TID pneumonia 05/19/17 05/19/17 sulfamethoxazole 800 2 ea PO BID pneumonia 05/19/17 mg-trimethoprim 160 mg tablet Previous Rx's ?Medication ?Instructions ?Recorded baloxavir marboxil 80 mg tablet 80 mg PO ONCE #1 tab 1 05/12/22 (Xofluza) Allergies Allergy/AdvReac Type Severity Reaction Status Date / Time No Known Allergies Allergy Verified 05/19/17 20:46 PFSH PFS Disclaimer: The information contained in this section may have been updated after the patient was seen, as this information can be updated by other users. Social History Smoking Status: Current every day smoker tobacco type: cigarettes packs per day: 1 second hand exposure: Yes alcohol intake: never substance use type: heroin current occupational status: employed Travel in the last 8 weeks?: None household members: significant other housing: apartment current occupation: CONSTRUCTION current occupational exposures/hazards: No caffeine: Yes Have you lived/traveled outside [place] in past 30 days?: No Contact w/someone who lives/traveled outside US past 30 days?: No Exposure to someone with infectious disease in past 14 days?: No Do you have a fever (greater than 100.4 F or 38 C)?: No Have you tested positive for COVID-19?: No Exposed to someone with COVID-19 in past 14 days?: No Do you have a sore throat?: No Do you have a cough?: No Do you have any weakness?: No Do you have any diarrhea?: No Are you experiencing any unusual bleeding?: No Do you have any muscle aches/pain?: No Do you have any abdominal pain?: No Are you experiencing loss of taste or smell?: No Other Medical History Have you received the Flu Vaccine for this season: No Have you received the Pneumonia Vaccine: No ROS Obtained: Yes Systems reviewed as appropriate & no additional complaints except as documented Constitutional Constitutional: Reports as per HPI Physical Exam General General appearance: alert and in no apparent distress Head Head exam: normocephalic Eye Eye exam: Present PERRL and EOMI ENT ENT exam: Present normal oropharynx and mucous membranes moist Neck Neck exam: Present full ROM and trachea midline Respiratory Respiratory exam: Present normal lung sounds bilaterally Cardiovascular Cardiovascular exam: Present regular rate, normal rhythm, normal heart sounds, +S1 and +S2 Extremities Exam Extremities exam: Present full ROM and normal capillary refill Neurological Exam Neurological exam: Present alert and oriented X3 Skin Skin exam: Present warm and dry Medical Decision Making Medical Records Screening: Per USPSTF and CDC recommendations, given the prevalence of disease in our region, it is our hospital?s policy to screen for HIV and viral Hepatitis for all patients aged 18 and over and those with ongoing risk factors. Moy Inquiry Pt receiving controlled substance: No Moy was queried for this patient: No Vital Signs: 01/22/25 14:29 Temperature 98.8 F Temperature Source Temporal Artery Scan Pulse Rate [Right] 66 Respiratory Rate 16 Blood Pressure [Right Arm] 151/97 H Blood Pressure Mean [Right Arm] 115 Blood Pressure Source [Right Arm] Automatic Cuff Blood Pressure Position [Right Arm] Sitting 02 Sat by Pulse Oximetry 99 Oxygen Delivery Method Room Air Lab Data Lab Results 01/22/25 15:21: SARS-CoV-2 (PCR) Not detected, Influenza A Untype (PCR) Not detected, Influenza Type B (PCR) Not detected 01/22/25 17:30: WBC 9.7, RBC 5.16, Hgb 16.0, Hct 45.6, MCV 88.4, MCH 31.0, MCHC 35.1, RDW 13.2, Plt Count 250, MPV 11.4 H, Neut % (Auto) 73.6, Lymph % (Auto) 18.9, Real % (Auto) 6.4, Eos % (Auto) 0.2, Baso % (Auto) 0.3, Neut # (Auto) 7.1, Lymph # (Auto) 1.8, Real # (Auto) 0.6, Eos # (Auto) 0.0, Baso # (Auto) 0.0, Sodium 137, Potassium 3.4 L, Chloride 103, Carbon Dioxide 26, Anion Gap 11.4, B UN 3 L, Creatinine 0.70, Estimated Creat Clear 192, Estimated GFR 123, Est GFR ( Amer) 149, Glucose 115 H, Calcium 9.4, Magnesium 1.9, Total Bilirubin 0.6, AST 25, ALT 18, Alkaline Phosphatase 92, Total Protein 8.2, Albumin 4.5, G lobulin 3.7 H, Albumin/Globulin Ratio 1.2, Urine Color Yellow, Urine Appearance Clear, Urine pH 7.0, Ur Specific [place] <= 1.005, Urine Protein Negative, Urine Glucose (UA) Negative, Urine Ketones Negative, Urine Blood Negative, Urine Nitrate Negative, Urine Bilirubin Negative, Urine Urobilinogen 0.2, Ur Leukocyte Esterase Negative, Urine RBC 3-5, Urine WBC 3-5, Ur Squamous Epith Cells 5-10, Urine Bacteria 1+ 01/22/25 17:30 01/22/25 17:30 Orders (Tests/Meds): ED MEDICATIONS Generic Name Dose Route Start Last Admin Trade Name Ana PRN Reason Stop Dose Admin Potassium Chloride 40 meq 01/22/25 18:21 Potassium Chloride 20meq Tab PO 01/22/25 18:22 ONCE ONE Discontinued Medications Generic Name Dose Route Start Last Admin Trade Name Ana PRN Reason Stop Dose Admin Dexamethasone Sodium Phosphate 8 mg 01/22/25 16:11 01/22/25 16:33 Dexamethasone 4mg/Ml 1ml Vial IV 01/22/25 16:12 8 mg ONCE ONE Administration Diphenhydramine HCl 50 mg 01/22/25 16:11 01/22/25 16:31 Diphenhydramine 50mg/Ml Vial IV 01/22/25 16:12 50 mg ONCE ONE Administration Sodium Chloride 1,000 mls @ 999 mls/hr 01/22/25 16:11 01/22/25 16:31 Sod Chlor 0.9% 1000ml Bag IV 01/22/25 17:11 999 mls/hr .Q1H1M ONE Administration Ketorolac Tromethamine 30 mg 01/22/25 16:11 01/22/25 16:35 Ketorolac 30mg/Ml Vial IV 01/22/25 16:12 30 mg ONCE ONE Administration Prochlorperazine Edisylate 5 mg 01/22/25 16:11 01/22/25 16:35 Prochlorperazine 10mg/2ml Vial IV 01/22/25 16:12 5 mg ONCE ONE Administration ORDERS Category Date Time Status CT head/brain wo con Stat Cat Scan 01/22/25 16:54 Completed Complete Blood Count Auto Diff Stat Lab 01/22/25 17:30 Completed Comprehensive Metabolic Panel Stat Lab 01/22/25 17:30 Completed Magnesium Stat Lab 01/22/25 17:30 Completed Rapid PCR Covid and Flu A/B Stat Lab 01/22/25 15:21 Completed Urinalysis-Acute [Urinalysis and Microscopic] Stat Lab 01/22/25 17:30 Completed Medical Decision Narrative: patient is a 44-year-old male presenting to the emergency department for evaluation of migraine. Patient is hemodynamically stable and nontoxic- appearing upon arrival, afebrile. Differential diagnosis includes migraine versus viral illness. Workup will be conducted with hematologic labs, specific imaging, provocative tests. Initial inventions include crystalloid bolus, analgesics, antibiotics, etc.. Initial workup reviewed by al hematologic labs are remarkable for Normal white count, potassium was 3.4 which we will replace here p.o., other labs are nonactionable urine is okay. CT scan is nonactionable. Patient is safe for discharge home. His head feels much better after medications. Patient will follow-up with PCP. Critical Care Critical Care Time Critical Care Time: No
--- NOTE | 2025-01-22 16:54 | CT_ITS ---
PROCEDURE INFORMATION: Exam: CT Head Without Contrast Exam date and time: 01/22/2025 5:01 PM Age: 44 years old Clinical indication: Pain; Headache; Migraine TECHNIQUE: Imaging protocol: Computed tomography of the head without contrast. Radiation optimization: All CT scans at this facility use at least one of these dose optimization techniques: automated exposure control; mA and/or kV adjustment per patient size (includes targeted exams where dose is matched to clinical indication); or iterative reconstruction. COMPARISON: No relevant prior studies available. FINDINGS: Brain: Normal. No hemorrhage. Unremarkable white matter. No mass effect. Cerebral ventricles: No ventriculomegaly. Paranasal sinuses: Visualized sinuses are unremarkable. No fluid levels. Mastoid air cells: Visualized mastoid air cells are well aerated. Bones: Unremarkable. No acute fracture. Soft tissues: Unremarkable. IMPRESSION: No acute intracranial abnormality.
[2025-01-22 17:34] LABS: Microscopic, Urine URINE MICROSCOPIC (MICROSCOPIC)
[2025-01-22 17:38] LABS: Hematocrit 45.6 % (42.0-52.0); Hemoglobin 16.0 g/dL (14.1-18.0); Immature Granulocytes % 0.6 %; Mean Corpuscular HGB Conc 35.1 g/dL (31.8-35.4); Mean Corpuscular Hemoglobin 31.0 pg (27.0-31.2); Mean Corpuscular Volume 88.4 fl (80-94); Nucleated Red Blood Cells % 0 %; Platelet Count 250 K/mm3 (142-424); Red Blood Count 5.16 M/mm3 (4.60-6.20); Red Cell Distribution Width-SD 42.9 fL; White Blood Count 9.7 K/mm3 (4.8-10.8)
[2025-01-22 17:40] LABS: Bilirubin,Urine Negative (Negative); Color,Urine YELLOW (Yellow); Glucose,Urine (UA) Negative (Negative); Ketones,Urine Negative (Negative); Leukocyte Esterase,Urine Negative (Negative); PH,Urine 7.0 (5.0-8.5); Protein,Urine Negative (Negative); Specific Gravity, Urine <= 1.005 (1.005-1.030); Urobilinogen,Urine 0.2 EU/dl (0.2)
[2025-01-22 18:07] LABS: Bacteria,Urine 1+ /lpf
[2025-01-22 18:13] LABS: Alanine Aminotransferase 18 U/L (12-78); Albumin Level 4.5 g/dl (3.5-5.0); Albumin/Globulin Ratio 1.2 (1.1-1.8); Alkaline Phosphatase 92 U/L (38-126); Anion Gap 11.4 mEq/L (5-15); Aspartate Amino Transferase 25 U/L (17-59); Bilirubin,Total 0.6 mg/dl (0.2-1.3); Blood Urea Nitrogen 3 mg/dl (9-20); Calcium 9.4 mg/dl (8.4-10.2); Carbon Dioxide 26 mmol/L (22.0-30.0); Chloride 103 mmol/L (98-107); Creatinine Clearance Estimated 192 mL/min (50-200); Creatinine,Serum 0.70 mg/dl (0.66-1.25); Estimated Glomerular Filt Rate 123 ml/min (>60); GFR (African American) 149 ML/MIN (>60); Globulin 3.7 g/dL (1.3-3.2); Glucose 115 mg/dl (74-100); Potassium 3.4 mmoL/L (3.5-5.1); Sodium 137 mmol/L (136-145); Total Protein,Serum 8.2 g/dl (6.3-8.2)
[2025-01-22 18:14] LABS: Magnesium 1.9 mg/dl (1.6-2.3)
[2025-01-22 18:28] VITALS: BP 163/106; PULSE 60; RESP 18; TEMP 36.8; O2SAT 99
[2025-01-22] MEDS: POTASSIUM CHLORIDE 20MEQ TAB 40 MEQ PO (18:28)
== END 2025-01-22 18:31 | disposition home or self-care (01) ==
PROVIDERS: Nurse Practitioner; Emergency Provider Student in an Organized Health Care Education/Training Program
DX: G43.909 Migraine, unspecified, not intractable, without status migrainosus (principal); R11.2 Nausea with vomiting, unspecified; F17.210 Nicotine dependence, cigarettes, uncomplicated
CPT/HCPCS: 70450; 80053; 81001; 83735; 85025; 87636; 96361; 96374; 96375; 99284; J0780; J1100; J1200; J1885; J7030